=== PATIENT | female | born 1995 | race Caucasian/White ===

== ENCOUNTER 2017-03-31 22:41 | Emergency (ER) | payer BC, OTHER ==
[~2017-03-31] VITALS: Ht 162.6 cm; Wt 123.0 kg
[2017-03-31 22:45] VITALS: Ht 162.6 cm; Wt 123.0 kg
[2017-03-31] MEDS ORDERED: KETOROLAC 60 MG INJ IM STA (23:59)
[2017-04-01] MEDS ORDERED: IBUP-1542 PO (00:58)
[2017-04-01] MEDS ORDERED: ORPH100T PO (00:59)
--- NOTE | 2017-04-01 01:03 | ERD ---
ER Documentation Chief Complaint Date/Time DATE: 04/01/17 TIME: 01:00 Chief Complaint left flank pain x 1 day HPI This is a 21-year-old female presents to the ER with left-sided lower back pain that started today. Pain is worse whenever she bends to the right. Patient denies any back trauma. She denies any urinary frequency or dysuria. She denies any suprapubic pain. She denies any hematuria. Patient denies any vaginal discharge. She has not had any fevers or chills. She denies any nausea vomiting or diarrhea. Patient took 1 200 mg ibuprofen at home however did not work.Patient does not have any urinary bowel incontinence, she denies any saddle like anesthesia. She denies any IV drug use. ROS 12 point review of systems was done, all negative except per HPI. Medications Home Meds Active Scripts Orphenadrine Citrate (Norflex) 100 Mg Tablet.sa, 100 MG PO BID for 7 Days, TAB.SA Prov:LATESHA MCLEAN 04/01/17 Ibuprofen* (Motrin*) 600 Mg Tab, 600 MG PO Q6, #30 TAB Prov:LATESHA MCLEAN 04/01/17 Reported Medications [None] No Conflict Check 11/15/10 Allergies Allergies: Coded Allergies: No Known Drug Allergies (Verified Allergy, Mild, 03/31/17) PMhx/Soc Medical and Surgical Hx: pt denies Medical Hx History of Surgery: Yes (arm and left foot) Anesthesia Reaction: No Hx Neurological Disorder: No Hx Respiratory Disorders: No Hx Cardiac Disorders: No Hx Psychiatric Problems: No Hx Miscellaneous Medical Probl: No Hx Alcohol Use: No Hx Substance Use: No Hx Tobacco Use: No Smoking Status: Never smoker Physical Exam Vitals Vital Signs Date Time Temp Pulse Resp B/P Pulse Ox O2 Delivery O2 Flow Rate FiO2 03/31/17 22:45 98.5 76 20 146/71 100 Physical Exam GENERAL: The patient is well developed and appropriate for usual state of health , in no apparent distress. patient is significantly overweight. NECK: C-spine is soft and supple. There is no cervical lymphadenopathy. CHEST: Clear to auscultation bilaterally. There are no rales, wheezes or rhonchi. HEART: Regular rate and rhythm. No murmurs, clicks, rubs or gallops. ABDOMEN: Soft, nontender and nondistended. Good bowel sounds. No rebound or guarding. No gross peritonitis. No gross organomegaly or masses. No Hdez sign or McBurney point tenderness. No pulsatile abdominal mass. BACK: No midline or flank tenderness. Patient is not tender to palpation along the thoracic or lumbar spine. Tense paraspinal muscles. Negative leg raise test. No step- offs. EXTREMITIES: Equal pulses bilaterally. There is no peripheral clubbing, cyanosis or edema. No focal swelling or erythema. Full range of motion. Grossly neurovascularly intact. NEURO: Alert and oriented. Cranial nerves II through XII are intact. Motor strength in all 4 extremities with 5/5 strength. Sensation grossly intact. Normal speech and gait. SKIN: There is no apparent rash or petechia. The skin is warm and dry. Results 24 hrs Current Medications Medications (Trade) Dose Ordered Sig/Augustine Route PRN Reason Start Time Stop Time Status Last Admin Dose Admin Ketorolac Tromethamine (Toradol) 60 mg ONCE STAT IM 03/31/17 23:59 04/01/17 00:01 DC 04/01/17 00:17 Procedures/MDM Differential Diagnosis includes but is not limited to back strain, vertebral fracture, epidural abscess, cauda equina, herniated disc, AAA rupture, kidney stones, UTI, pyelonephritis. Patient's likely has muscular pain. Patient does not have any flank pain he was having CVA tenderness. He does not have any symptoms of urinary tract infection is afebrile and well-appearing. Patient was given Toradol in the ER approximately better after medications. She will be sent with ibuprofen and with Norflex. Doctor within 1 to days return to ER sooner if symptoms worsen. My medical decision making shared with the patient understands and agrees with plan. Departure Diagnosis: Primary Impression: Back pain Condition: Stable Patient Instructions: Back Pain (Acute Or Chronic) Additional Instructions: Call your primary care doctor TOMORROW for an appointment during the next 1-2 days.See the doctor sooner or return here if your condition worsens before your appointment time. LATESHA MCLEAN Apr 01, 2017 01:03
== END 2017-04-01 00:59 | disposition home or self-care (01) ==
LOC: FTE 22:41
DX: M54.5 Low back pain (principal)
CPT/HCPCS: 96372; J1885; Z7502